=== PATIENT | male | born 1965 | race Caucasian/White ===

== ENCOUNTER 2016-08-01 22:15 | Emergency (ER) | payer OTHER ==
[~2016-08-01] VITALS: Ht 165.1 cm; Wt 80.5 kg
[~2016-08-01 22:15] MED LIST: ADV25050 INHALATION; AZIT250T6 PO; METH32TA PO
[2016-08-01 22:49] VITALS: Ht 165.1 cm; Wt 80.5 kg
[2016-08-02] MEDS ORDERED: IBUPROFEN 600 MG TAB PO ONE (04:30)
[2016-08-02] MEDS ORDERED: DIPHTH/TET/ACEL PERTUSS (ADULT) 0.5 ML VIAL IM* ONE (04:30)
--- NOTE | 2016-08-02 05:27 | RADRPT ---
PROCEDURE: Left thumb. CLINICAL INDICATION: Pain. TECHNIQUE: Three views including PA, lateral and oblique views of the left thumb were obtained. COMPARISON: None. FINDINGS: There is a fracture of the tuft of the first distal phalanx. There is no dislocation. The joint sp aces are within normal limits. Bone mineralization is within normal limits. There is no radiopaque foreign body or abnormal calcification. IMPRESSION: Fracture of the tuft of the first distal phalanx. .Perfecto Baez MD, MD Date Time Electronically viewed and signed by .Perfecto Baez MD, MD on 08/02/2016 05:27 .T/
[2016-08-02] MEDS ORDERED: IBUP800T25 PO (05:42)
[2016-08-02 06:11] VITALS: BP 133/78; PULSE 63; RESP 16
--- NOTE | 2016-08-05 13:41 | ERD ---
ER Documentation Chief Complaint Date/Time DATE: 08/05/16 TIME: 13:32 Chief Complaint Left thumb puncture wound with a screw HPI This is a 51 year old male presenting to ER after finger injury yesterday afternoon. Patient states he was using an eletric drill when he accidently drilled into his left thumb. Patient states the drill went into his thumb about 1/2 an inch. Part of his nail is removed. No loss of sensation or numbness/tingling. No limited mobility to thumb. Patient reports pain to left thumb 10/10. ROS All systems reviewed and are negative except as per history of present illness. Medications Home Meds Active Scripts Ibuprofen* (Motrin*) 800 Mg Tab, 800 MG PO Q6, #20 TAB Prov:DIANDRA FIELDS NP 08/02/16 Salmeterol Xinaf/Fluticasone* (Advair*) 250-50 Diskus Inhaler, 1 INH INHALATION BID, #1 INHALER Prov:FREDDY MERRITT MD, [facility] 02/27/16 Azithromycin* (Azithromycin*) 250 Mg Tablet, 500 MG PO DAILY for 7 Days, #7 TAB Prov:FREDDY MERRITT MD, [facility] 02/27/16 Methylprednisolone* (Medrol*) 32 Mg Tablet, 40 MG PO DAILY, #60 TAB Decrease by 10mg every other day to complete. total 8 days Prov:FREDDY MERRITT MD, [facility] 02/27/16 Allergies Allergies: Coded Allergies: No Known Drug Allergies (Verified Allergy, Unknown, 02/26/16) PMhx/Soc History of Surgery: Yes (Hemorrhoids removal at 1997) Anesthesia Reaction: No Hx Neurological Disorder: No Hx Respiratory Disorders: Yes Hx Cardiac Disorders: No Hx Psychiatric Problems: No Hx Miscellaneous Medical Probl: No Hx Alcohol Use: No Hx Substance Use: No Hx Tobacco Use: No Smoking Status: Never smoker Physical Exam Vitals Vital Signs Date Time Temp Pulse Resp B/P Pulse Ox O2 Delivery O2 Flow Rate FiO2 08/02/16 06:11 63 16 133/78 96 Room Air 08/01/16 22:49 97.5 68 20 122/69 98 Physical Exam Const: no acute distress, alert, oriented to person, place and time. Head: Atraumatic Eyes: Normal Conjunctiva ENT: Normal External Ears, Nose and Mouth. Neck: Full range of motion..~ No meningismus. Resp: Clear to auscultation bilaterally Cardio: Regular rate and rhythm, no murmurs Abd: Soft, non tender, non distended. Normal bowel sounds Skin: No petechiae or rashes Back: No midline or flank tenderness Ext: left thumb with lateral distal aspect of nail removed. no swelling, surrounding erythema, warmth or drainage. no active bleeding. Neur: Awake and alert Psych: Normal Mood and Affect Results 24 hrs Current Medications Medications (Trade) Dose Ordered Sig/Kin Route PRN Reason Start Time Stop Time Status Last Admin Dose Admin Ibuprofen (Motrin) 600 mg ONCE ONCE PO 08/02/16 04:30 08/02/16 04:31 DC 08/02/16 04:45 Diphtheria/ Tetanus/Acell Pertussis (Adacel) 0.5 ml ONCE ONCE IM* 08/02/16 04:30 08/02/16 04:31 DC 08/02/16 04:46 Procedures/MDM Patient: ALIN MEYER : 1965 Age: 51 Sex: M MR #: [id number] DOS: 08/02/16 0421 Ordering MD: DIANDRA FIELDS NP Location: [facility] Room/Bed: PROCEDURE: Left thumb. CLINICAL INDICATION: Pain. TECHNIQUE: Three views including PA, lateral and oblique views of the left thumb were obtained. COMPARISON: None. FINDINGS: There is a fracture of the tuft of the first distal phalanx. There is no dislocation. The joint spaces are within normal limits. Bone mineralization is within normal limits. There is no radiopaque foreign body or abnormal calcification. IMPRESSION: Fracture of the tuft of the first distal phalanx. MDM: 51 year old male presents to ER after left thumb injury yesterday afternoon. Patient was using an electric drill when he accidently drilled into his left thumb. Physical exam reveals distal part of nail is removed to left thumb. No erythema, warmth, drainage, streaking, induration or fluctuance. Xray reviewed by radiologist as fracture of the tuft of the first distal phalanx. Patient given ibuprofen 600mg for pain. Patient states pain is tolerable. Patient given t-dap vaccination. Fingerboard applied and patient remains neurovascularly intact. Vitals are stable. Patient's diagnosis is distal phalanx fracture of left hallux. Low suspicion for deep space infection, cellulitis, compartment syndrome or abscess. Patient is appropriate for outpatient management and will be given prescription for ibuprofen 800 mg. nstructed patient to follow up with orthopedic physician in the next 24-48 hours. Resources provided. CD of x-ray imaged provided. Return to ED for any new or worsening symptoms. Patient verbalizes understanding. All questions answered at discharge. Departure Diagnosis: Primary Impression: Fracture of distal phalanx of finger, closed Encounter type: initial encounter Finger: thumb Fracture alignment: nondisplaced Laterality: left Qualified Code: S62.525A - Closed nondisplaced fracture of distal phalanx of left thumb, initial encounter Condition: Stable Patient Instructions: Fracture, Finger (Closed) Referrals: [facility] YOU HAVE RECEIVED A MEDICAL SCREENING EXAM AND THE RESULTS INDICATE THAT YOU DO NOT HAVE A CONDITION THAT REQUIRES URGENT TREATMENT IN THE EMERGENCY DEPARTMENT. FURTHER EVALUATION AND TREATMENT OF YOUR CONDITION CAN WAIT UNTIL YOU ARE SEEN IN YOUR DOCTORS OFFICE WITHIN THE NEXT 1-2 DAYS. IT IS YOUR RESPONSIBILITY TO MAKE AN APPOINTMENT FOR FOLOW-UP CARE. IF YOU HAVE A PRIMARY DOCTOR --you should call your primary doctor and schedule an appointment IF YOU DO NOT HAVE A PRIMARY DOCTOR YOU CAN CALL OUR PHYSICIAN REFERRAL HOTLINE AT IF YOU CAN NOT AFFORD TO SEE A PHYSICIAN YOU CAN CHOSE FROM THE FOLLOWING [facility] CLINICS [facility] [address] [facility]. [facility] [address] [facility] [facility] [address] [facility] [facility] [address] [facility] [address] [facility]. [facility]. [address] [facility]. [facility] YOU HAVE RECEIVED A MEDICAL SCREENING EXAM AND THE RESULTS INDICATE THAT YOU DO NOT HAVE A CONDITION THAT REQUIRES URGENT TREATMENT IN THE EMERGENCY DEPARTMENT. FURTHER EVALUATION AND TREATMENT OF YOUR CONDITION CAN WAIT UNTIL YOU ARE SEEN IN YOUR DOCTORS OFFICE WITHIN THE NEXT 1-2 DAYS. IT IS YOUR RESPONSIBILITY TO MAKE AN APPOINTMENT FOR FOLOW-UP CARE. IF YOU HAVE A PRIMARY DOCTOR --you should call your primary doctor and schedule and appointment IF YOU DO NOT HAVE A PRIMARY DOCTOR YOU CAN CALL OUR PHYSICIAN REFERRAL HOTLINE AT . IF YOU CAN NOT AFFORD TO SEE A PHYSICIAN YOU CAN CHOSE FROM THE FOLLOWING [facility] INSTITUTIONS: [facility] [address] [place] [address] [facility] [address] [place] [address] [facility] [address] [place] [address] [facility] 7 a.m.- 11 p.m. Every Day of the Week NO APPOINTMENT OR AUTHORIZATION NEEDED Additional Instructions: Call your primary care doctor TOMORROW for an appointment during the next 2-3 days.See the doctor sooner or return here if your condition worsens before your appointment time. Return to ED for any high fever, chest pain, difficulty breathing, shortness breath, wheezing, vomiting, diarrhea, abdominal pain or any new or worsening symptoms. DIANDRA FIELDS NP August 05, 2016 13:40
== END 2016-08-02 06:17 | disposition home or self-care (01) ==
LOC: FTE 22:15
DX: S62.525A Nondisplaced fracture of distal phalanx of left thumb, initial encounter for closed fracture (principal); W31.1XXA Contact with metalworking machines, initial encounter; Y92.9 Unspecified place or not applicable
CPT/HCPCS: 73140; 90471; 90715

== ENCOUNTER 2016-11-14 05:01 | Emergency (ER) | payer OTHER ==
[~2016-11-14] VITALS: Ht 165.1 cm; Wt 78.5 kg
[~2016-11-14 05:01] MED LIST changes: +IBUP800T25 PO
[2016-11-14 05:06] VITALS: Ht 165.1 cm; Wt 78.5 kg
[2016-11-14] MEDS ORDERED: IPRATROPIUM (NEB) 0.5 MG/2.5 ML AMP NEB STA ×2 (05:10→05:14)
[2016-11-14] MEDS ORDERED: METHYLPREDNISOLONE 125 MG INJ IM STA (05:10)
[2016-11-14] MEDS ORDERED: ALBUTEROL 0.083% (NEB) 2.5 MG/3 ML AMP NEB STA ×2 (05:10→05:14)
--- NOTE | 2016-11-14 05:37 | ERD ---
ER Documentation Chief Complaint Date/Time DATE: 11/14/16 TIME: 05:34 Chief Complaint SHORTNESS OF BREATH, ASTHMA ATTACK, INHALER INEFFECTIVE HPI 51-year-old male presents here in emergency department for complaints of cough, shortness of breath and wheezing for 3 days. Patient has history of asthma, has been using his inhaler only with mild relief. Patient does not have any fever or chills. Patient denies any chest pain. Patient denies any dyspnea on exertion or dyspnea on lying down. Patient denies any dizziness. ROS All systems reviewed and are negative except as per history of present illness. Medications Home Meds Active Scripts Prednisone* (Prednisone*) 50 Mg Tablet, 50 MG PO DAILY, #5 TAB Prov:EDGAR TA NP 11/14/16 Cetirizine Hcl* (Zyrtec*) 10 Mg Capsule, 10 MG PO DAILY, #30 TAB.CHEW Prov:EDGAR TA NP 11/14/16 Bnjelgasmij-Y-Rzgrehulsy Hb* (Guaifenesin* DM Syrup) 120 Ml Syrup, 10 ML PO Q4H Y for COUGH, #120 ML Prov:EDGAR TA NP 11/14/16 Beclomethasone Dip* (Qvar 40*) 7.3 Gm Inha, 2 PUFF INH BID, #1 INHALER Prov:EDGAR TA NP 11/14/16 Albuterol Sulfate* (Proair HFA*) 8.5 Gm Hfa.aer.ad, 2 PUFF INH Q4H Y for WHEEZING AND SOB, #1 INHALER Prov:EDGAR TA NP 11/14/16 Ibuprofen* (Motrin*) 800 Mg Tab, 800 MG PO Q6, #20 TAB Prov:DIANDRA FIELDS NP 08/02/16 Salmeterol Xinaf/Fluticasone* (Advair*) 250-50 Diskus Inhaler, 1 INH INHALATION BID, #1 INHALER Prov:FREDDY MERRITT MD, [facility] 02/27/16 Azithromycin* (Azithromycin*) 250 Mg Tablet, 500 MG PO DAILY for 7 Days, #7 TAB Prov:FREDDY MERRITT MD, [facility] 02/27/16 Methylprednisolone* (Medrol*) 32 Mg Tablet, 40 MG PO DAILY, #60 TAB Decrease by 10mg every other day to complete. total 8 days Prov:FREDDY MERRITT MD, [facility] 02/27/16 Allergies Allergies: Coded Allergies: No Known Drug Allergies (Verified Allergy, Unknown, 11/14/16) PMhx/Soc History of Surgery: Yes (Hemorrhoids removal at 1997) Anesthesia Reaction: No Hx Neurological Disorder: No Hx Respiratory Disorders: Yes (ASTHMA ) Hx Cardiac Disorders: No Hx Psychiatric Problems: No Hx Miscellaneous Medical Probl: No Hx Alcohol Use: No Hx Substance Use: No Hx Tobacco Use: No Smoking Status: Never smoker FmHx Family History: diabetes, No coronary disease, No other Physical Exam Vitals Vital Signs Date Time Temp Pulse Resp B/P Pulse Ox O2 Delivery O2 Flow Rate FiO2 11/14/16 07:34 96 11/14/16 05:20 75 26 94 21 11/14/16 05:06 98.6 75 20 117/74 94 Physical Exam GENERAL: The patient is well developed and appropriate for usual state of health, in no apparent distress. CHEST: diffuse wheezing noted bilaterally. There are no rales, crackles or rhonchi. HEART: Regular rate and rhythm. No murmurs, clicks, rubs or gallops. No S3 or S4. ABDOMEN: Soft, nontender and nondistended. Good bowel sounds. No rebound or guarding. No gross peritonitis. No gross organomegaly or masses. No Paz sign or McBurney point tenderness. BACK: No midline or flank tenderness. EXTREMITIES: Equal pulses bilaterally. There is no peripheral clubbing, cyanosis or edema. No focal swelling or erythema. Full range of motion. Grossly neurovascularly intact. NEURO: Alert and oriented. Cranial nerves 2-12 intact. Motor strength in all 4 extremities with 5/5 strength. Sensation grossly intact. Normal speech and gait. SKIN: There is no apparent rash or petechia. The skin is warm and dry. HEMATOLOGIC AND LYMPHATIC: There is no evidence of excessive bruising or lymphedema. No gross cervical, axillary, or inguinal lymphadenopathy. Results 24 hrs Current Medications Medications (Trade) Dose Ordered Sig/Kin Route PRN Reason Start Time Stop Time Status Last Admin Dose Admin Albuterol (Proventil 0.083% (Neb)) 5 mg ONCE STAT NEB 11/14/16 05:10 11/14/16 05:12 DC 11/14/16 05:20 Ipratropium [place] (Atrovent 0.02% (Neb)) 0.5 mg ONCE STAT NEB 11/14/16 05:10 11/14/16 05:12 DC 11/14/16 05:20 Methylprednisolone Sodium Succinate (Solu-Medrol) 125 mg ONCE STAT IM 11/14/16 05:10 11/14/16 05:12 DC 11/14/16 05:34 Albuterol (Proventil 0.083% (Neb)) 5 mg ONCE STAT NEB 11/14/16 05:14 11/14/16 05:15 DC 11/14/16 05:20 Ipratropium [place] (Atrovent 0.02% (Neb)) 0.5 mg ONCE STAT NEB 11/14/16 05:14 11/14/16 05:15 DC 11/14/16 05:20 Breathing treatment of albuterol and Atrovent, IM Solumedrol was given here in emergency department, after treatment, patient's lungs sounds are clear and patient's oxygenation is better. Patient verbalized feeling much better. PROCEDURE: XR Chest. CLINICAL INDICATION: Asthma exacerbation TECHNIQUE: AP Portable chest. COMPARISON: 02/26/2016 FINDINGS: The cardiomediastinal silhouette is normal. The aorta is normal. No focal consolidation, pleural effusion or pneumothorax is seen. The osseous structures are intact. IMPRESSION: No radiographic evidence of acute cardiopulmonary disease. Physician Flaco Date Time Electronically viewed and signed by Mesfin Boogie Physician on 11/14/2016 05: 40 CS/ CC: EDGAR TA SOFTWARE TEST DEVELOPER Procedures/MDM Medical Decision Making: Patient symptoms are most likely consistent with acute bronchitis with acute asthma exacerbation, which viral in origin. There is low suspicion for Pneumonia at this time since patients lungs sounds are clear, patient O2 saturation is normal and patient doesnt show any respiratory distress. Patients chest xray doesnt show infiltrates or any other cardiopulmonary emergencies at this time. There is low suspicion for other cardiopulmonary emergencies at this time such as CHF, Pulmonary Embolism, Pneumothorax, Aortic Aneurysm or any other cardiopulmonary emergencies at this time. There is low suspicion for sepsis. Patient appears well and is hemodynamically stable. Fever is controlled with medicines. Disposition: Home. Condition: Stable Prescriptions: Albuterol, Prednisone, Guaifenasin DM, Zyrtec, Qvar Instructions: Patient is advised to take medications as prescribed. Patient is advised to rest. Patient advised to increase fluid intake, do humidifier at home and if possible, do salt water gargles. Patient is advised that if symptoms are worse, shortness of breath, uncontrolled fever, stridor, vomiting, worst signs and symptoms to return to emergency department immediately. Otherwise, patient is advised to follow up with primary doctor in 5-7 days. Departure Diagnosis: Primary Impression: Acute asthma exacerbation Asthma severity: unspecified severity Qualified Code: J45.901 - Asthma with acute exacerbation, unspecified asthma severity Additional Impression: Acute bronchitis Bronchitis organism: unspecified organism Qualified Code: J20.9 - Acute bronchitis, unspecified organism Condition: Stable Patient Instructions: Bronchitis With Wheezing (Adult) Additional Instructions: : Patient is advised to take medications as prescribed. Patient is advised to rest. Patient advised to increase fluid intake, do humidifier at home and if possible, do salt water gargles. Patient is advised that if symptoms are worse, shortness of breath, uncontrolled fever, stridor, vomiting, worst signs and symptoms to return to emergency department immediately. Otherwise, patient is advised to follow up with primary doctor in 5-7 days. EDGAR TA NP Nov 14, 2016 05:37
[2016-11-14] MEDS ORDERED: CETI10CA PO (05:39)
[2016-11-14] MEDS ORDERED: ALBU8.5H3 INH (05:39)
[2016-11-14] MEDS ORDERED: BECL8.7A INH (05:39)
[2016-11-14] MEDS ORDERED: PRED50TA PO (05:39)
[2016-11-14] MEDS ORDERED: GUAI120S26 PO (05:39)
--- NOTE | 2016-11-14 05:40 | RADRPT ---
PROCEDURE: XR Chest. CLINICAL INDICATION: Asthma exacerbation TECHNIQUE: AP Portable chest. COMPARISON: 02/26/2016 FINDINGS: The cardiomediastinal silhouette is normal. The aorta is normal. No focal consolidation, pleural eff usion or pneumothorax is seen. The osseous structures are intact. IMPRESSION: No radiographic evidence of acute cardiopulmonary disease. Physician Flaco Date Time Electronically viewed and signed by Mesfin Boogie Physician on 11/14/2016 05:40 CS/
== END 2016-11-14 07:36 | disposition home or self-care (01) ==
LOC: FTE 05:01
DX: J45.901 Unspecified asthma with (acute) exacerbation (principal); J20.9 Acute bronchitis, unspecified
CPT/HCPCS: 71010; 94644; 96372; 99284; J2930

== ENCOUNTER 2017-03-21 00:25 | Emergency (ER) | END 2017-03-21 02:44 | disposition home or self-care (01) ==